=== PATIENT | male | born 1970 ===

== ENCOUNTER 2021-12-11 02:26 | Emergency (ER) ==
[2021-12-11] MEDS ORDERED: Albuterol/Ipratropium 3.0-0.5 MG/3 ML Neb Soln INH ONE (02:27)
[2021-12-11] MEDS ORDERED: methylPREDNISolone Sodium Succinate 125 MG/2 ML SDV IV ONE (02:27)
== END 2021-12-11 04:00 | disposition home or self-care (01) ==
LOC: MW.ED 02:26
DX: J40 Bronchitis, not specified as acute or chronic (principal); Z20.822 Contact with and (suspected) exposure to COVID-19
CPT/HCPCS: 71045; 96374; 99285; J2930; 93010; 99283; J7620-GY